=== PATIENT | male | born 1970 | race Caucasian/White ===

== ENCOUNTER 2016-12-05 06:22 | Emergency (ER) | payer SELFPAY | END 2016-12-05 10:05 | disposition left against medical advice (07) | LOC: D.ER 06:22 | DX: S86.912A Strain of unspecified muscle(s) and tendon(s) at lower leg level, left leg, initial encounter (principal); Y93.89 Activity, other specified; X58.XXXA Exposure to other specified factors, initial encounter; Y92.89 Other specified places as the place of occurrence of the external cause; I10 Essential (primary) hypertension; F17.200 Nicotine dependence, unspecified, uncomplicated ==

== ENCOUNTER 2018-04-16 07:30 | Day surgery (SDC) | payer MEDICAID ==
[2018-04-15 12:32] LABS: HEMATOCRIT 48.7 % (42.0-54.0); HEMOGLOBIN 16.7 g/dL (13.5-17.5); MCHC 34.3 g/dL (31.0-37.0); MCV 87.6 fL (80.0-100.0); MEAN PLATELET VOLUME 9.7 fL (7.4-10.4); RBC 5.56 10x6/uL (4.20-6.10); RDW 13.8 % (11.5-14.5); WBC 9.3 10x3/uL (4.8-10.8)
[~2018-04-16] VITALS: Ht 182.9 cm; Wt 127.9 kg
--- NOTE | ~2018-04-16 | OP ---
PATIENT NAME: ZARA TIWARI JR MEDICAL RECORD: [id number] :72 LOCATION:D[facility] ADMISSION DATE: SURGEON: YOAN ALICIA MD DATE OF OPERATION: 04/16/2018 SURGEON: Yoan Alicia MD Director Oracle: Richa Murrell APN PREOPERATIVE DIAGNOSES: 1. Ventral hernia. 2. Incarcerated left inguinal hernia. POSTOPERATIVE DIAGNOSES: 1. Incarcerated ventral hernia. 2. Incarcerated left inguinal hernia. PROCEDURE PERFORMED: 1. Incarcerated ventral hernia repair with mesh. 2. Incarcerated left inguinal hernia repair with mesh. ANESTHESIA: General. COMPLICATIONS: None. SPECIMENS: Hernia sac. Case was clean. ESTIMATED BLOOD LOSS: 75 cc. OPERATIVE COURSE: After consent was obtained, the patient was taken to the operating room and placed in supine position on the operating table. Next, general anesthesia was given via endotracheal intubation after a timeout was performed that confirmed the correct patient and procedure. Local anesthetic was injected just above the umbilicus. A semicircular incision was made using a 15 blade scalpel. Dissection continued to the level of the external oblique fascia using electrocautery. The umbilicus was circumferentially dissected using electrocautery. A large incarcerated ventral midline hernia was encountered. The hernia sac was circumferentially dissected. The hernia sac was excised and sent for permanent pathology. The incarcerated hernia sac contained moderate amount of omentum, which was reduced. The edges were freed up circumferentially in all directions. Approximately 5 cm of fascia were dissected off the external oblique fascia in all directions. The hernia defect measured 4 cm in length. The defect was easily able to be closed. A 4-1/[address] mesh was placed. Four stay sutures were placed at the 12 o'clock, 3 o'clock, 6 o'clock, and 9 o'clock position and secured against the abdominal wall. The hernia defect was then closed primarily using #1 Prolene suture using interrupted suture making sure the bites incorporated the skirted piece of the Ventralight ST mesh. The fascia was then closed with 3-0 Vicryl suture. The skin was closed with 4-0 Stratafix, Mastisol, and Steri-Strips. Next, the left inguinal hernia was repaired. External landmarks were identified. Local anesthetic was again injected for an ilioinguinal nerve block. Incision was made. Dissection continued to the level of the external oblique fascia using electrocautery. Once in the external oblique fascia, the OPERATIVE REPORT [id number] ZARA TIWARI JR external ring was identified. There was a large incarcerated hernia exiting through the external ring and into the scrotum. The external oblique fascia was incised with 15-blade scalpel. The external oblique fascia was opened using Metzenbaum scissors. It was opened through the external ring, opened laterally towards the ASIS. Blunt dissection was performed. A large incarcerated direct inguinal hernia sac was identified. The cord structures were dissected off of the hernia sac. The hernia sac was excised. A significant portion of the greater omentum as well as sigmoid colon were present within the direct hernia sac. They were reduced into the abdominal cavity. The hernia sac was excised. The direct space was closed with 0 Vicryl suture. The direct space was closed by sewing the conjoined tendon to the inguinal ligament. Next, a standard Jennifer repair was performed using a Bard soft mesh. The mesh was secured to the pubic tubercle medial, secured to the inguinal ligament inferiorly. The internal ring was loosely recreated. The mesh was secured superiorly to the conjoined tendon. The external oblique fascia was then closed using 2-0 Vicryl suture loosely recreating the external ring. Alley's fascia was closed with 3-0 Vicryl suture. The skin was closed with 4-0 Stratafix, Mastisol, and Steri-Strips. At the end of the case, all needle and instrument counts were correct. No complications occurred. The patient was extubated and transferred to PACU in stable condition. TRANSINT:[id number] Voice Confirmation ID: [id number] DOCUMENT ID: [id number] YOAN ALICIA MD at 1112 CC: [id number] DICTATION DATE: 04/16/18 1401 X RAY [employer] MECHANIC: 04/16/18 1624 [facility] 04/16/[address] [id number]
[2018-04-16 08:11] VITALS: BP 160/103; Ht 182.9 cm; Wt 127.9 kg
[2018-04-16] MEDS ORDERED: NORCO 7.5/325 T1 TA1 PO (13:50)
[2018-04-16] MEDS ORDERED: BACTRIM DS TABL1 TAB PO (13:52)
[2018-04-16] MEDS ORDERED: FLOMAX0.4 MG PO (13:52)
[2018-04-16] MEDS ORDERED: FUROSEMIDE20 MG PO (13:52)
== END 2018-04-16 16:40 | disposition home or self-care (01) ==
LOC: D.OPS 07:30 → D.PAN 10:30 → D.OPS 10:30
PROVIDERS: Anesthesiology
DX: K43.6 Other and unspecified ventral hernia with obstruction, without gangrene (principal); K40.30 Unilateral inguinal hernia, with obstruction, without gangrene, not specified as recurrent; Z01.812 Encounter for preprocedural laboratory examination

== ENCOUNTER 2018-05-07 20:07 | Emergency (ER) | payer MEDICAID ==
[~2018-05-07] VITALS: Ht 182.9 cm; Wt 122.7 kg
[~2018-05-07 20:07] MED LIST: BACTRIM DS TABL1 TAB PO; FLOMAX0.4 MG PO; FUROSEMIDE20 MG PO; NORCO 7.5/325 T1 TA1 PO
[2018-05-07 20:15] VITALS: BP 121/76; Ht 182.9 cm; Wt 122.7 kg
[2018-05-07 21:46] LABS: BASOPHILS 0.4 % (0-2); HEMATOCRIT 39.9 % (42.0-54.0); HEMOGLOBIN 13.2 g/dL (13.5-17.5); IMMATURE GRANULOCYTES 0.2 % (0-5); LYMPHOCYTES 29.6 % (15-50); MCH 29.1 pg (26.0-34.0); MCHC 33.1 g/dL (31.0-37.0); MCV 88.1 fL (80.0-100.0); MONOCYTES 9.9 % (2-11); NEUTROPHILS 52.9 % (40-80); PLATELET COUNT 413 10x3/uL (130-400); RBC 4.53 10x6/uL (4.20-6.10); RDW 13.5 % (11.5-14.5); WBC 8.5 10x3/uL (4.8-10.8)
[2018-05-07 22:19] LABS: ALBUMIN 2.9 g/dL (3.4-5.0); ALKALINE PHOSPHATASE 117 U/L (46-116); ALT (SGPT) 38 U/L (10-68); CALC OSMOLALITY 280 mosm/kg (275-300); CALCIUM 9.2 mg/dL (8.5-10.1); CARBON DIOXIDE 30.1 mmol/L (21.0-32.0); CHLORIDE - SERUM 103 mmol/L (98-107); GLUCOSE 157 mg/dL (74-106); POTASSIUM - SERUM 4.1 mmol/L (3.5-5.1); PROTEIN - SERUM 7.7 g/dL (6.4-8.2); SODIUM 140 mmol/L (136-145); UREA NITROGEN 10 mg/dL (7-18); eGFR NON AFRICAN AMERICAN 85 mL/min (90-120)
== END 2018-05-07 21:59 | disposition left against medical advice (07) ==
LOC: D.ER 20:07
PROVIDERS: Family Medicine
DX: G89.18 Other acute postprocedural pain (principal); N50.812 Left testicular pain; Z98.890 Other specified postprocedural states